=== PATIENT | female | born 1965 | race Native Hawaiian/Other Pacific Islander ===

== ENCOUNTER 2017-08-14 19:55 | Emergency (ER) | payer SELFPAY ==
[2017-08-14 20:18] VITALS: RESP 18
[2017-08-14] MEDS ORDERED: Albuterol 0.083% Inhal Sol (2.5 mg/3 mL) UD INH STA (20:18)
[2017-08-14] MEDS ORDERED: Promethazine/Cod 6.25mg-10mg/5ml Syr UD PO STA (20:18)
[2017-08-14] MEDS ORDERED: Sodium Chloride 0.9% 500 ML IV STA (20:20)
--- NOTE | 2017-08-14 20:26 | ED PDOC ---
Arrival/HPI - General Chief Complaint: Abdominal Pain Time Seen by Provider: 08/14/17 20:12 Historian: Patient - History of Present Illness Narrative History of Present Illness (Text): 08/14/17 20:20 52yo female with PMhx of hypertension present with complaint of nonproductive cough x 4days. Started having chest and abdominal pain with cough today. also report nausea and generalized bodyache. The daughter by the bedside states patient's grand daughter was sick with cold. Did not take any medication. Denies fever, chills, vomiting, diarrhea, headache, dizziness, Le edema, calf pain, sick contact, travel. Past Medical History - Provider Review Nursing Documentation Reviewed: Yes - Reproductive Menopause: Yes - Cardiac Hx Cardiac Disorders: Yes Hx Hypertension: Yes - Pulmonary Hx Respiratory Disorders: No - Neurological Hx Neurological Disorder: No - HEENT Hx HEENT Disorder: No - Renal Hx Renal Disorder: Yes Hx Kidney Stones: Yes - Endocrine/Metabolic Hx Endocrine Disorders: Yes Hx Hypothyroidism: Yes - Hematological/Oncological Hx Blood Disorders: No - Integumentary Hx Dermatological Disorder: No - Musculoskeletal/Rheumatological Hx Musculoskeletal Disorders: No - Gastrointestinal Hx Gastrointestinal Disorders: No - Genitourinary/Gynecological Hx Genitourinary Disorders: No - Psychiatric Hx Psychophysiologic Disorder: No Hx Substance Use: No - Surgical History Other/Comment: REMOVAL OF KIDNEY STONES. Family/Social History - Physician Review Nursing Documentation Reviewed: Yes Family/Social History: Unknown Family HX Smoking Status: Never Smoked Hx Alcohol Use: No Hx Substance Use: No Allergies/Home Meds Allergies/Adverse Reactions: Allergies No Known Allergies Allergy (Verified 08/14/17 19:58) Home Medications: Home Meds Medication Instructions Recorded Confirmed Levothyroxine Sodium [Unithroid] 137 mcg PO DAILY 08/14/17 08/14/17 Lisinopril [Zestril] 20 mg PO DAILY 08/14/17 08/14/17 Simvastatin [Zocor] 20 mg PO DAILY 08/14/17 08/14/17 Review of Systems - Physician Review All systems were reviewed & negative as marked: Yes - Review of Systems Constitutional: Fatigue Eyes: Normal ENT: Normal Respiratory: Cough. absent: SOB, Sputum, Wheezing Cardiovascular: Chest Pain. absent: Palpitations, Edema, Calf Pain Gastrointestinal: Abdominal Pain, Nausea. absent: Constipation, Diarrhea, Vomiting, Hematemesis Genitourinary Female: Normal Musculoskeletal: Normal Skin: Normal Neurological: Normal Endocrine: Normal Hemo/Lymphatic: Normal Psychiatric: Normal Physical Exam Vital Signs Reviewed: Yes Vital Signs Temp Pulse Resp BP Pulse Ox 08/14/17 20:00 99.3 F 106 H 18 118/76 95 Temperature: Afebrile Blood Pressure: Normal Pulse: Tachycardic Respiratory Rate: Normal Appearance: Positive for: Well-Appearing, Non-Toxic, Comfortable Pain Distress: None Mental Status: Positive for: Alert and Oriented X 3 - Systems Exam Head: Present: Atraumatic, Normocephalic Pupils: Present: PERRL Extroacular Muscles: Present: EOMI Conjunctiva: Present: Normal Mouth: Present: Moist Mucous Membranes Neck: Present: Normal Range of Motion Respiratory/Chest: Present: Clear to Auscultation, Good Air Exchange. No: Respiratory Distress, Accessory Muscle Use, Wheezes, Decreased Breath Sounds, Rales, Retracting, Rhonchi Cardiovascular: Present: Regular Rate and Rhythm, Normal S1, S2. No: Murmurs Abdomen: Present: Normal Bowel Sounds, Other (Soft). No: Tenderness, Distention , Peritoneal Signs, Rebound, Guarding, McBurney's Point Tender, Rovsing's Sign Present Back: Present: Normal Inspection Upper Extremity: Present: Normal Inspection. No: Cyanosis, Edema Lower Extremity: Present: Normal Inspection. No: Edema Neurological: Present: GCS=15, CN II-XII Intact, Speech Normal Skin: Present: Warm, Dry, Normal Color. No: Rashes Psychiatric: Present: Alert, Oriented x 3, Normal Insight, Normal Concentration Medical Decision Making ED Course and Treatment: 08/14/17 22:33 PT in ED for stated history. she was not in any distress. Her VS improved in ED with medication and hydration. Lab was unremarkable with exception of hypokalemia and it was repleted Rapid Flu A was positive and pt was treated with Tamiflu CXR NAD Pt was give Zpack for URI Result was DW both pt and the daughter She was DC home with prometh with codeine, ibuproffen, Tamiflu and Zpack. Referred to her PMD. Advised to drink plenty of fluid and rest - Lab Interpretations Lab Results: 08/14/17 20:45 08/14/17 20:45 Lab Results 08/14/17 21:00: Influenza Typ A,B (EIA) Pos for influenza a H 08/14/17 20:45: Sodium 138, Potassium 3.1 L, Chloride 99, Carbon Dioxide 24, Anion Gap 18, BUN 12, Creatinine 0.6 L, Est GFR ( Amer) > 60, Est GFR ( Non-Af Amer) > 60, Random Glucose 178 H, Calcium 9.6, Magnesium 2.3 H, Total Bilirubin 0.5, AST 26, ALT 35, Alkaline Phosphatase 77, Lactate Dehydrogenase 454, Total Creatine Kinase 93, Troponin I < 0.01, Total Protein 7.8, Albumin 4.5 , Globulin 3.4, Albumin/Globulin Ratio 1.3, Lipase 97 08/14/17 20:45: Urine Color Light yellow, Urine Appearance Clear, Urine pH 6.0, Ur Specific [place] <= 1.005, Urine Protein Negative, Urine Glucose (UA) Negative, Urine Ketones Negative, Urine Blood Negative, Urine Nitrate Negative, Urine Bilirubin Negative, Urine Urobilinogen 0.2, Ur Leukocyte Esterase Negative 08/14/17 20:45: PT 12.1, INR 1.06, APTT 30.6 08/14/17 20:45: WBC 4.3 L, RBC 4.63, Hgb 13.7, Hct 40.6, MCV 87.7, MCH 29.6, MCHC 33.7, RDW 13.2, Plt Count 188, MPV 10.0, Gran % 69.8 H, Lymph % (Auto) 19.8 L, [place] % (Auto) 9.9 H, Eos % (Auto) 0.5 L, Baso % (Auto) 0.0, Gran # 2.97 , Lymph # (Auto) 0.8 L, [place] # (Auto) 0.4, Eos # (Auto) 0.0, Baso # (Auto) 0.00 - RAD Interpretation Radiology Orders: 08/14/17 20:17 CHEST TWO VIEWS (PA/LAT) [RAD] Stat - Medication Orders Current Medication Orders: Discontinued Medications Acetaminophen (Tylenol 325mg Tab) 975 mg PO STAT STA Stop: 08/14/17 20:20 Last Admin: 08/14/17 20:56 Dose: 975 mg MAR Pain/Vitals Document 08/14/17 20:56 AD (Rec: 08/14/17 20:56 AD [id number]) Presence of Pain Presence of Pain Yes Location Pain Location Body Site Abdomen Albuterol Sulfate (Albuterol 0.083% Inhal Kiesha (2.5 Mg/3 Ml) Ud) 2.5 mg INH STAT STA Stop: 08/14/17 20:19 Last Admin: 08/14/17 20:56 Dose: 2.5 mg Azithromycin (Zithromax) 500 mg PO STAT STA PRN Reason: Protocol Stop: 08/14/17 22:12 Famotidine (Pepcid) 20 mg IVP STAT STA Stop: 08/14/17 20:19 Last Admin: 08/14/17 20:55 Dose: 20 mg IVP Administration Document 08/14/17 20:55 AD (Rec: 08/14/17 20:55 AD [id number] Charges for Administration # of IVP Administrations 1 Sodium Chloride (Sodium Chloride 0.9%) 500 mls @ 999 mls/hr IV .Q31M STA Stop: 08/14/17 20:50 Last Admin: 08/14/17 20:56 Dose: 999 mls/hr eMAR Start Stop Document 08/14/17 20:56 AD (Rec: 08/14/17 20:56 AD [id number]) Intravenous Solution Start Date 08/14/17 Start Time 20:56 Oseltamivir Phosphate (Tamiflu Cap) 75 mg PO ONCE STA PRN Reason: Protocol Stop: 08/14/17 21:45 Last Admin: 08/14/17 22:08 Dose: 75 mg Potassium Chloride (K-Dur 20 Meq Er Tab) 40 meq PO STAT STA Stop: 08/14/17 21:10 Last Admin: 08/14/17 21:15 Dose: 40 meq Promethazine HCl/Codeine (Phenergan/Codeine Oral Syrup) 5 ml PO STAT STA Stop: 08/14/17 20:19 Last Admin: 08/14/17 20:55 Dose: 5 ml Disposition/Present on Arrival - Present on Arrival Any Indicators Present on Arrival: No History of DVT/PE: No History of Uncontrolled Diabetes: No Urinary Catheter: No History of Decub. Ulcer: No History Surgical Site Infection Following: None - Disposition Have Diagnosis and Disposition been Completed?: Yes Diagnosis: Influenza, URI (upper respiratory infection) Disposition: HOME/ ROUTINE Disposition Time: 22:15 Patient Plan: Discharge Patient Problems: Current Active Problems Problem Status Onset Influenza Acute Condition: STABLE Discharge Instructions (ExitCare): Flu, Adult (DC) Additional Instructions: Follow up with your doctor Drink plenty of fluid and test Take ibuprofen/Tylenol every 6hrs as needed for pain/fever Return to ED for any new or worsening symptoms Prescriptions: Azithromycin [Zithromax] 250 mg PO DAILY #4 tab Ibuprofen [Motrin Tab] 600 mg PO Q6 #20 tab Oseltamivir Phosphate [Tamiflu] 75 mg PO BID #10 capsule Promethazine HCl/Codeine [Prometh-Codein 6.25-10 mg/5 ml] 5 ml PO Q6 #100 ml [facility] - Follow up with primary [facility] [Outside] - Follow up with primary Forms: [employer] (Turkmen)
[2017-08-14 20:59] LABS: EOS % 0.5 % (1.5-5.0); GRAN # 2.97 (1.4-6.5); GRAN % 69.8 % (50.0-68.0); HEMOGLOBIN 13.7 g/dL (12.0-16.0); LYMPH # 0.8 (1.2-3.4); LYMPH % 19.8 % (22.0-35.0); MEAN CELL VOLUME 87.7 fl (80.0-105.0); MEAN CORPUSCULAR HEMOGLOBIN 29.6 pg (25.0-35.0); MEAN CORPUSCULAR HGB CONC 33.7 g/dl (31.0-37.0); MONO # 0.4 (0.1-0.6); MONO % 9.9 % (1.0-6.0); RBC 4.63 10^6/uL (3.5-6.1); RED CELL DISTRIBUTION WIDTH 13.2 % (11.5-14.5); WHITE BLOOD COUNT 4.3 10^3/ul (4.5-11.0)
[2017-08-14 21:00] LABS: URINE BILIRUBIN NEGATIVE (NEGATIVE); URINE BLOOD NEGATIVE (NEGATIVE); URINE GLUCOSE (UA) NEGATIVE (NEGATIVE); URINE LEUKOCYTE ESTERASE NEGATIVE Leu/uL (NEGATIVE); URINE NITRATE NEGATIVE (NEGATIVE); URINE PROTEIN NEGATIVE mg/dL (<30 mg/dL); URINE UROBILINOGEN 0.2 E.U./dL (<1 E.U./dL)
[2017-08-14 21:02] LABS: URINE APPEARANCE CLEAR (CLEAR); URINE COLOR LIGHT YELLOW (YELLOW)
[2017-08-14 21:07] LABS: INR 1.06 (0.93-1.08); PARTIAL THROMBOPLASTIN TIME 30.6 Seconds (25.1-36.5); PROTHROMBIN TIME 12.1 SECONDS (9.4-12.5)
[2017-08-14 21:09] LABS: ALB/GLOB RATIO 1.3 (1.1-1.8); ALBUMIN 4.5 g/dL (3.0-4.8); ALT/SGPT 35 U/L (7-56); AST/SGOT 26 U/L (14-36); BLOOD UREA NITROGEN 12 mg/dL (7-21); CALCIUM 9.6 mg/dL (8.4-10.5); GFR AFRICAN-AMERICAN > 60; GFR NON-AFRICAN AMERICAN > 60; LIPASE 97 U/L (23-300); MAGNESIUM 2.3 mg/dL (1.7-2.2)
[2017-08-14] MEDS ORDERED: Potassium Chloride 20 mEq ER Tab PO STA (21:09)
[2017-08-14 21:20] LABS: TROPONIN I < 0.01 ng/mL
[2017-08-14 22:47] VITALS: BP 118/85; PULSE 97; TEMP 98.9; O2SAT 98
--- NOTE | 2017-08-15 10:05 | CARD ---
APPROVED REPORT EKG Measurement Heart [id number] <Conclusion> Sinus Tachycardia 105/min.
== END 2017-08-14 22:45 | disposition home or self-care (01) ==
LOC: ED 19:55
DX: J11.1 Influenza due to unidentified influenza virus with other respiratory manifestations (principal); I10 Essential (primary) hypertension
CPT/HCPCS: 71046; 80053; 81003; 82550; 83615; 83690; 83735; 84484; 85025; 85610; 85730; 87804; 93005; 96374; 99283; J7040

== ENCOUNTER 2017-11-30 09:22 | Emergency (ER) | payer MEDICAID ==
[2017-11-30] MEDS ORDERED: Sodium Chloride 0.9% 1,000 ML IV STA ×2 (09:38→11:27)
--- NOTE | 2017-11-30 09:52 | ED PDOC ---
Arrival/HPI - General Chief Complaint: Dizziness/Lightheaded Time Seen by Provider: 11/30/17 09:29 Historian: Patient - History of Present Illness Narrative History of Present Illness (Text): 11/30/17 09:42 52 year old female, with past medical history of hypertension, presents to the Emergency department complaining of dizziness and vomiting prior to arrival. Patient informs feeling dizzy when her blood pressure was 170 mmHg systolic at 6am this morning, for which she took double her dose of Lisinopril. Patient began vomiting right after. Patient denies any new episodes of vomiting but currently complains of persistent dizziness. Patient denies any chest pain but states her "heart is beating strangely". Patient denies any fever, chills, diarrhea, abdominal pain, shortness of breath or any other complaints. Patient presents to the Emergency department for medical evaluation. Time/Duration: 1-3 hours Symptom Onset: Gradual Symptom Course: Unchanged Activities at Onset: Light Context: Home Past Medical History - Provider Review Nursing Documentation Reviewed: Yes - Cardiac Hx Cardiac Disorders: Yes Hx Hypertension: Yes - Pulmonary Hx Respiratory Disorders: No - Neurological Hx Neurological Disorder: No - HEENT Hx HEENT Disorder: No - Renal Hx Renal Disorder: Yes Hx Kidney Stones: Yes - Endocrine/Metabolic Hx Endocrine Disorders: Yes Hx Hypothyroidism: Yes - Hematological/Oncological Hx Blood Disorders: No - Integumentary Hx Dermatological Disorder: No - Musculoskeletal/Rheumatological Hx Musculoskeletal Disorders: No - Gastrointestinal Hx Gastrointestinal Disorders: No - Genitourinary/Gynecological Hx Genitourinary Disorders: No - Psychiatric Hx Psychophysiologic Disorder: No Hx Substance Use: No - Surgical History Other/Comment: REMOVAL OF KIDNEY STONES. - Anesthesia Hx Anesthesia: No Hx Anesthesia Reactions: No Hx Malignant Hyperthermia: No Family/Social History - Physician Review Nursing Documentation Reviewed: Yes Family/Social History: No Known Family HX Smoking Status: Never Smoked Hx Alcohol Use: No Hx Substance Use: No Allergies/Home Meds Allergies/Adverse Reactions: Allergies No Known Allergies Allergy (Verified 08/14/17 19:58) Home Medications: Home Meds Medication Instructions Recorded Confirmed Levothyroxine Sodium [Unithroid] 137 mcg PO DAILY 08/14/17 11/30/17 Lisinopril [Zestril] 20 mg PO DAILY 08/14/17 11/30/17 Simvastatin [Zocor] 20 mg PO DAILY 08/14/17 11/30/17 Review of Systems - Physician Review All systems were reviewed & negative as marked: Yes - Review of Systems Constitutional: Normal. absent: Fevers Eyes: Normal ENT: Normal Respiratory: Normal. absent: SOB Cardiovascular: Normal. absent: Chest Pain Gastrointestinal: Nausea, Vomiting. absent: Abdominal Pain, Diarrhea Genitourinary Female: Normal Musculoskeletal: Normal Skin: Normal Neurological: Dizziness Endocrine: Normal Hemo/Lymphatic: Normal Psychiatric: Normal Physical Exam Vital Signs Reviewed: Yes Vital Signs Temp Pulse Resp BP Pulse Ox 11/30/17 13:55 98.5 F 84 18 126/89 97 11/30/17 12:32 98.9 F 82 18 130/73 98 11/30/17 10:59 89 19 132/84 98 11/30/17 09:22 97.4 F L 91 H 20 140/71 94 L Temperature: Afebrile Blood Pressure: Normal Pulse: Tachycardic Respiratory Rate: Normal Appearance: Positive for: Well-Appearing, Non-Toxic, Comfortable Pain Distress: None Mental Status: Positive for: Alert and Oriented X 3 - Systems Exam Head: Present: Atraumatic, Normocephalic Pupils: Present: PERRL Extroacular Muscles: Present: EOMI Conjunctiva: Present: Normal Mouth: Present: Moist Mucous Membranes Neck: Present: Normal Range of Motion Respiratory/Chest: Present: Clear to Auscultation, Good Air Exchange. No: Respiratory Distress, Accessory Muscle Use Cardiovascular: Present: Regular Rate and Rhythm, Normal S1, S2. No: Murmurs Abdomen: No: Tenderness, Distention, Peritoneal Signs Back: Present: Normal Inspection Upper Extremity: Present: Normal Inspection, NORMAL PULSES, Neurovascularly Intact, Other (intact ROM, strength 5/5 grossly intact in all limbs, neurovasc intact b/l; + ambulatory; reflex +2/2). No: Cyanosis, Edema Lower Extremity: Present: Normal Inspection, Normal ROM, Neurovascularly Intact , Other (4/5 strength). No: Edema Neurological: Present: GCS=15, CN II-XII Intact, Speech Normal, Motor Func Grossly Intact, Other (No nystagmus. Finger to nose coordination intact however patient slow to perform exam as she keeps closing her eyes and is somewhat uncooperative with exam) Skin: Present: Warm, Dry, Normal Color. No: Rashes Psychiatric: Present: Alert, Oriented x 3, Normal Insight, Normal Concentration Medical Decision Making ED Course and Treatment: 11/30/17 09:45 Impression: 52 year old female presents to the Emergency department for dizziness, nausea and vomiting. Plan: -- EKG -- Chest X-ray -- Aspirin -- Zofran -- IV Fluids -- Labs -- Reassess and disposition Prior Visits: Notes and results from previous visits were reviewed. Progress Notes: 11/30/17 09:40 EKG: Ordered, reviewed, and independently interpreted the EKG. Rate : 80 BPM Rhythm : NSR Interpretation : Normal axis; QTC 463; isolated T wave inversion in Lead III; No other ST/T wave changes. 11/30/17 11:57 Patient re-evaluated, nausea has improved after zofran. Patient much more awake and alert. BP in the 130's systolic. Lab and imaging results discussed with patient and daughter. Will hydrate with additional NS bolus (patient has already received 1L). 11/30/17 13:15 Patient re-evaluated. She has finished her second liter of NS. BP 121 systolic. Patient with no complaints. Will send home with Rx for zofran. - Lab Interpretations Lab Results: 11/30/17 09:43 11/30/17 09:43 Lab Results 11/30/17 10:57: Urine Color Yellow, Urine Appearance Clear, Urine pH 6.0, Ur Specific [place] >= 1.030, Urine Protein Negative, Urine Glucose (UA) Negative, Urine Ketones Negative, Urine Blood Negative, Urine Nitrate Negative, Urine Bilirubin Negative, Urine Urobilinogen 0.2, Ur Leukocyte Esterase Negative 11/30/17 09:43: Sodium 142, Potassium 4.1, Chloride 104, Carbon Dioxide 23, Anion Gap 19, BUN 13, Creatinine 0.6 L, Est GFR ( Amer) > 60, Est GFR ( Non-Af Amer) > 60, Random Glucose 204 H, Calcium 9.1, Magnesium 1.8, Total Bilirubin 0.6, AST 21, ALT 37, Alkaline Phosphatase 85, Lactate Dehydrogenase 441, Total Creatine Kinase 54, Troponin I < 0.01, Total Protein 7.2, Albumin 4.4 , Globulin 2.8, Albumin/Globulin Ratio 1.6 11/30/17 09:43: WBC 6.9 D, RBC 4.44, Hgb 12.8, Hct 37.2, MCV 83.8 D, MCH 28.8 , MCHC 34.4, RDW 12.6, Plt Count 201, MPV 10.1, Gran % 83.0 H, Lymph % (Auto) 13.3 L, [place] % (Auto) 3.6, Eos % (Auto) 0.1 L, Baso % (Auto) 0.0, Gran # 5.72, Lymph # (Auto) 0.9 L, [place] # (Auto) 0.3, Eos # (Auto) 0.0, Baso # (Auto) 0.00 - RAD Interpretation Narrative RAD Interpretations (Text): 11/30/17 11:17 Chest X-ray reviewed by radiologist, shows: FINDINGS: LUNGS: No active pulmonary disease. PLEURA: No significant pleural effusion identified, no pneumothorax apparent. CARDIOVASCULAR: No radiographic findings to suggest acute or significant cardiovascular disease. OSSEOUS STRUCTURES: No significant abnormalities. VISUALIZED UPPER ABDOMEN: Normal. OTHER FINDINGS: None. IMPRESSION: No active disease. No significant interval change compared to the prior examination(s). Radiology Orders: 11/30/17 09:37 CHEST PORTABLE [RAD] Stat Associate Professor Computer Science: Radiologist - EKG Interpretation Interpreted by ED Physician: Yes Type: 12 lead EKG - Medication Orders Current Medication Orders: Discontinued Medications Aspirin (Aspirin) 325 mg PO STAT STA Stop: 11/30/17 09:38 Last Admin: 11/30/17 09:57 Dose: 325 mg Sodium Chloride (Sodium Chloride 0.9%) 1,000 mls @ 999 mls/hr IV .Q1H1M STA Stop: 11/30/17 10:38 Last Admin: 11/30/17 09:58 Dose: 999 mls/hr eMAR Start Stop Document 11/30/17 09:58 OCS (Rec: 11/30/17 09:58 OCS [id number]) Intravenous Solution Start Date 11/30/17 Start Time 09:58 End Date 11/30/17 End time 10:59 Total Infusion Time 61 Sodium Chloride (Sodium Chloride 0.9%) 1,000 mls @ 999 mls/hr IV .Q1H1M STA Stop: 11/30/17 12:27 Last Admin: 11/30/17 12:00 Dose: 999 mls/hr eMAR Start Stop Document 11/30/17 12:00 OCS (Rec: 11/30/17 12:28 OCS [id number]) Intravenous Solution Start Date 11/30/17 Start Time 12:28 End Date 11/30/17 End time 13:29 Total Infusion Time 61 Ondansetron HCl (Zofran Inj) 4 mg IVP STAT STA Stop: 11/30/17 09:39 Last Admin: 11/30/17 09:57 Dose: 4 mg IVP Administration Document 11/30/17 09:57 OCS (Rec: 11/30/17 09:57 OCS [id number]) Charges for Administration # of IVP Administrations 1 - Scribe Statement The provider has reviewed the documentation as recorded by the Scribe Jack Foster. All medical record entries made by the Scribe were at my direction and personally dictated by me. I have reviewed the chart and agree that the record accurately reflects my personal performance of the history, physical exam, medical decision making, and the department course for this patient. I have also personally directed, reviewed, and agree with the discharge instructions and disposition. Disposition/Present on Arrival - Present on Arrival Any Indicators Present on Arrival: No History of DVT/PE: No History of Uncontrolled Diabetes: No Urinary Catheter: No History of Decub. Ulcer: No History Surgical Site Infection Following: None - Disposition Have Diagnosis and Disposition been Completed?: Yes Diagnosis: Vomiting, Dizziness Disposition: HOME/ ROUTINE Disposition Time: 13:55 Patient Plan: Discharge Condition: GOOD Discharge Instructions (ExitCare): Nausea and Vomiting, Adult (DC), Dizziness, Nonvertigo, (DC) Additional Instructions: AUREA WAGONER, thank you for letting us take care of you today. Your provider was Rayne Espinal MD and you were treated for VOMITING. The emergency medical care you received today was directed at your acute symptoms. If you were prescribed any medication, please fill it and take as directed. It may take several days for your symptoms to resolve. Return to the Emergency Department if your symptoms worsen, do not improve, or if you have any other problems. Please contact your doctor or call one of the physicians/clinics you have been referred to that are listed on the Patient Visit Information form that is included in your discharge packet. Bring any paperwork you were given at discharge with you along with any medications you are taking to your follow up visit. Our treatment cannot replace ongoing medical care by a primary care provider outside of the emergency department. Thank you for allowing the [facility] team to be part of your care today. If you had an X-Ray or CT scan: A Radiologist will review the ED reading if any change in treatment is needed we will contact you. If you had a blood, urine, or wound culture: It will take several days for the results, if any change in treatment is needed we will contact you. If you had an STI test: It will take 48 hours for the results. Please call after 1 week if you have not heard back. Prescriptions: Ondansetron [Zofran] 4 mg PO Q8H PRN #10 tab PRN Reason: Nausea/Vomiting Forms: [employer] (Samoan)
[2017-11-30 10:07] LABS: EOS % 0.1 % (1.5-5.0); GRAN # 5.72 (1.4-6.5); HEMOGLOBIN 12.8 g/dL (12.0-16.0); LYMPH # 0.9 (1.2-3.4); LYMPH % 13.3 % (22.0-35.0); MEAN CELL VOLUME 83.8 fl (80.0-105.0); MEAN CORPUSCULAR HEMOGLOBIN 28.8 pg (25.0-35.0); MEAN CORPUSCULAR HGB CONC 34.4 g/dl (31.0-37.0); MEAN PLATELET VOLUME 10.1 fl (7.0-11.0); MONO # 0.3 (0.1-0.6); MONO % 3.6 % (1.0-6.0); RBC 4.44 10^6/uL (3.5-6.1); RED CELL DISTRIBUTION WIDTH 12.6 % (11.5-14.5); WHITE BLOOD COUNT 6.9 10^3/ul (4.5-11.0)
[2017-11-30 10:13] LABS: ALB/GLOB RATIO 1.6 (1.1-1.8); ALBUMIN 4.4 g/dL (3.0-4.8); ALT/SGPT 37 U/L (7-56); AST/SGOT 21 U/L (14-36); BLOOD UREA NITROGEN 13 mg/dL (7-21); CALCIUM 9.1 mg/dL (8.4-10.5); GFR AFRICAN-AMERICAN > 60; GFR NON-AFRICAN AMERICAN > 60
[2017-11-30 10:18] VITALS: BMI 34.1
[2017-11-30 10:25] LABS: TROPONIN I < 0.01 ng/mL
--- NOTE | 2017-11-30 11:06 | RAD ---
HISTORY: chest pain COMPARISON: 08/14/2017 FINDINGS: LUNGS: No active pulmonary disease. PLEURA: No significant pleural effusion identified, no pneumothorax apparent. CARDIOVASCULAR: No radiographic findings to suggest acute or significant cardiovascular disease. OSSEOUS STRUCTURES: No significant abnormalities. VISUALIZED UPPER ABDOMEN: Normal. OTHER FINDINGS: None. IMPRESSION: No active disease. No significant interval change compared to the prior examination(s).
[2017-11-30 11:07] LABS: URINE BILIRUBIN NEGATIVE (NEGATIVE); URINE BLOOD NEGATIVE (NEGATIVE); URINE GLUCOSE (UA) NEGATIVE (NEGATIVE); URINE LEUKOCYTE ESTERASE NEGATIVE Leu/uL (NEGATIVE); URINE PROTEIN NEGATIVE mg/dL (<30 mg/dL); URINE UROBILINOGEN 0.2 E.U./dL (<1 E.U./dL)
[2017-11-30 11:08] LABS: URINE APPEARANCE CLEAR (CLEAR); URINE COLOR YELLOW (YELLOW)
[2017-11-30 12:37] VITALS: RESP 18
--- NOTE | 2017-11-30 13:17 | CARD ---
APPROVED REPORT EKG Measurement Heart [id number] <Conclusion> Poor data quality, interpretation may be adversely affected Normal sinus rhythm Normal ECG
[2017-11-30 13:57] VITALS: BP 126/89; PULSE 84; TEMP 98.5; O2SAT 97
== END 2017-11-30 13:54 | disposition home or self-care (01) ==
LOC: ED 09:22
DX: R42 Dizziness and giddiness (principal); R11.10 Vomiting, unspecified; I10 Essential (primary) hypertension
CPT/HCPCS: 71045; 80053; 81003; 82550; 83615; 83735; 84484; 85025; 93005; 96361; 96374; 96375; 99285; J2405; J7030

== ENCOUNTER 2017-12-04 10:52 | Observation (INO) | payer MEDICAID ==
[2017-12-04 10:52] VITALS: BMI 34.1
--- NOTE | 2017-12-04 11:35 | ED PDOC ---
Arrival/HPI - History of Present Illness Time/Duration: 1-3 hours Symptom Onset: Sudden Symptom Course: Unchanged Quality: Pressure <Saravanan Myers - Last Filed: 12/04/17 15:59> - General Historian: Patient, Family <Felipe Rangel - Last Filed: 12/04/17 18:12> - General Chief Complaint: GI Problem Time Seen by Provider: 12/04/17 11:02 - History of Present Illness Narrative History of Present Illness (Text): Patient is a 52 year old female with a past medical history of hypertension and hypothyroidism who presents to the emergency department for evaluation and treatment of abdominal pain, nausea, vomiting, and chest pain. States all symptoms began this morning after taking double her dose of lisinopril. States she took double the dose because her systolic blood pressure was in the 150s- 160s. States the chest pain is diffuse and radiates into the abdomen. The pain is associated with diaphoresis, nausea, and several bouts of nonbloody, nonbilious emesis. Also admits to dizziness and lightheadedness. Denies fever, chills, shortness of breath, diarrhea, constipation, and urinary symptoms. PMHx: HTN, hypothyroidism, coma secondary to carbon monoxide poisoning PSHx: cholecystectomy, "scalp surgery" Allergies: "Fruits" Family Hx: noncontributory Social Hx: denies ETOH use, Denies tobacco use, Denies illicit drug use 12/04/17 14:23 (Saravanan Myers) Past Medical History - Provider Review Nursing Documentation Reviewed: Yes - Travel History Have you recently traveled outside [place] w/in the past 3 mons?: No - Cardiac Hx Cardiac Disorders: Yes Hx Hypertension: Yes - Pulmonary Hx Respiratory Disorders: No - Neurological Hx Neurological Disorder: No - HEENT Hx HEENT Disorder: No - Renal Hx Renal Disorder: Yes Hx Kidney Stones: Yes - Endocrine/Metabolic Hx Endocrine Disorders: Yes Hx Hypothyroidism: Yes - Hematological/Oncological Hx Blood Disorders: No - Integumentary Hx Dermatological Disorder: No - Musculoskeletal/Rheumatological Hx Musculoskeletal Disorders: No - Gastrointestinal Hx Gastrointestinal Disorders: No - Genitourinary/Gynecological Hx Genitourinary Disorders: No - Psychiatric Hx Psychophysiologic Disorder: No Hx Substance Use: No - Surgical History Other/Comment: REMOVAL OF KIDNEY STONES. - Anesthesia Hx Anesthesia: No Hx Anesthesia Reactions: No Hx Malignant Hyperthermia: No <Saravanan Myers - Last Filed: 12/04/17 15:59> - Past History Past History: No Previous - Reproductive Currently : Unknown <Felipe Rangel - Last Filed: 12/04/17 18:12> Family/Social History - Physician Review Nursing Documentation Reviewed: Yes Family/Social History: Unknown Family HX Smoking Status: Never Smoked Hx Alcohol Use: No Hx Substance Use: No <Saravanan Myers - Last Filed: 12/04/17 15:59> Allergies/Home Meds <Saravanan Myers - Last Filed: 12/04/17 15:59> <Felipe Rangel - Last Filed: 12/04/17 18:12> Allergies/Adverse Reactions: Allergies No Known Allergies Allergy (Verified 12/04/17 11:07) Home Medications: Home Meds Medication Instructions Recorded Confirmed Levothyroxine Sodium [Unithroid] 137 mcg PO DAILY 08/14/17 12/04/17 Lisinopril [Zestril] 20 mg PO DAILY 08/14/17 12/04/17 Simvastatin [Zocor] 20 mg PO DAILY 08/14/17 12/04/17 Review of Systems - Review of Systems Eyes: absent: Photophobia, Eye Pain ENT: Normal Respiratory: Normal Cardiovascular: Chest Pain Gastrointestinal: Abdominal Pain, Nausea, Vomiting. absent: Constipation, Diarrhea Genitourinary Female: Normal Musculoskeletal: Normal Skin: Normal Neurological: Dizziness. absent: Focal Weakness, Speech Changes, Facial Droop Endocrine: Normal Hemo/Lymphatic: Normal Psychiatric: Normal <Saravanan Myers - Last Filed: 12/04/17 15:59> Physical Exam Vital Signs Reviewed: Yes Temperature: Hypothermic Blood Pressure: Normal Pulse: Regular Respiratory Rate: Normal Appearance: Positive for: Uncomfortable Pain Distress: Mild Mental Status: Positive for: Alert and Oriented X 3 - Systems Exam Head: Present: Atraumatic, Normocephalic Pupils: Present: PERRL Extroacular Muscles: Present: Other (horizontal nystagmus) Conjunctiva: Present: Normal Mouth: Present: Moist Mucous Membranes Neck: Present: Normal Range of Motion Respiratory/Chest: Present: Clear to Auscultation, Good Air Exchange. No: Respiratory Distress, Accessory Muscle Use Cardiovascular: Present: Regular Rate and Rhythm, Normal S1, S2. No: Murmurs Abdomen: No: Tenderness, Distention, Peritoneal Signs Back: Present: Normal Inspection Upper Extremity: Present: Normal Inspection. No: Cyanosis, Edema Lower Extremity: Present: Normal Inspection. No: Edema Neurological: Present: GCS=15, Speech Normal Skin: Present: Warm, Normal Color, Diaphoretic. No: Rashes Psychiatric: Present: Alert, Oriented x 3, Normal Insight, Normal Concentration <Mamta Myersil - Last Filed: 12/04/17 15:59> Appearance: Positive for: Well-Appearing. No: Ill-Appearing, Unkept <Felipe Rangel - Last Filed: 12/04/17 18:12> Vital Signs Temp Pulse Resp BP Pulse Ox 12/04/17 15:23 88 18 104/62 100 12/04/17 11:17 97.4 F L 78 17 143/72 99 Medical Decision Making - Lab Interpretations I have reviewed the lab results: Yes - EKG Interpretation Interpreted by ED Physician: Yes Type: 12 lead EKG <LouisSaravanan - Last Filed: 12/04/17 15:59> Re-evaluation Time: 15:30 Reassessment Condition: Unchanged - Critical Care Critical Care Minutes: 30 minutes Critical Care Time: Excluding Proc Time - Lab Interpretations Interpretation: Abnormal lab values (low TSH) - RAD Interpretation Knitter Wire Mesh: Radiologist - EKG Interpretation Comparison: Similar to previous EKG <Felipe Rangel - Last Filed: 12/04/17 18:12> ED Course and Treatment: Assessment and Plan: Patient is a 52 year old female with a past medical history of hypertension who presents to the emergency department for evaluation and treatment of abdominal pain, nausea, vomiting, and chest pain. 12/04/17 11:38 Pre-syncope; Dizziness - orthostatics - meclizine - half normal NS 1 liter bolus - CT head without contrast Abdominal Pain, Nausea, Vomiting - reglan - pepcid 12/04/17 14:40 - CT head reviewed and appreciated- no acute intracranial findings - Chest X-ray reviewed and appreciated- no acute findings 12/04/17 15:19 - patient continues to have dizziness - unable to ambulate 12/04/17 15:58 - patient endorsed to hospitalist team who have accepted the patient to there service (Saravanan Myers) I performed the hx and physical exam of the patient and discussed their mgt with the RESIDENT. I reviewed the RESIDENT's NOTE and agree with the assessment and plan of care. after 1st round of meclizine/reglan/fluids, pt continue to have dizziness/ lightheadedness, pt is unable to ambulate 3:00pm - after valium, pt continue to have dizziness/lightheadedness, inability to ambulate concern for basiliar infarction/basiliar insufficency is warranted, will recommend patient for admission pt is made aware of her medical results agrees with admission (Felipe Rangel) - Critical Care Narrative Critical Care (Text): 12/04/17 18:10 critical care time: 30min, excluding procedure time, excluding time teaching residents/students/mid-level providers; including initial eval/diagnosis, diagnostic interpretation, re-eval, consultations, final disposition (Felipe Rangel) - Lab Interpretations Lab Results: 12/04/17 11:19 12/04/17 11:30 Lab Results 12/04/17 11:32: POC Glucose (mg/dL) 134 H 12/04/17 11:30: TSH 3rd Generation 0.06 L 12/04/17 11:30: Phosphorus 3.7 12/04/17 11:30: Sodium 142, Potassium 3.5 L, Chloride 102, Carbon Dioxide 24, Anion Gap 20, BUN 13, Creatinine 0.5 L, Est GFR ( Amer) > 60, Est GFR ( Non-Af Amer) > 60, Random Glucose 132 H, Calcium 9.4, Magnesium 2.1, Total Bilirubin 0.5, AST 24, ALT 30, Alkaline Phosphatase 88, Lactate Dehydrogenase 541, Total Creatine Kinase 34 L, Troponin I 0.01, Total Protein 7.9, Albumin 4.7 , Globulin 3.2, Albumin/Globulin Ratio 1.5 12/04/17 11:19: WBC 7.1, RBC 4.69, Hgb 13.6, Hct 39.1, MCV 83.4, MCH 29.0, MCHC 34.8, RDW 12.7, Plt Count 227, MPV 10.2, Gran % 56.1, Lymph % (Auto) 37.2 H, Sevier % (Auto) 5.7, Eos % (Auto) 1.0 L, Baso % (Auto) 0.0, Gran # 3.97, Lymph # ( Auto) 2.6, Sevier # (Auto) 0.4, Eos # (Auto) 0.1, Baso # (Auto) 0.00 - RAD Interpretation Narrative RAD Interpretations (Text): 12/04/17 14:40 PROCEDURE: CT HEAD WITHOUT CONTRAST. HISTORY: dizziness COMPARISON: None available. TECHNIQUE: Axial computed tomography images were obtained through the head/brain without intravenous contrast. Radiation dose: Total exam DLP = 873 mGy-cm. This CT exam was performed using one or more of the following dose reduction techniques: Automated exposure control, adjustment of the mA and/or kV according to patient size, and/or use of iterative reconstruction technique. FINDINGS: HEMORRHAGE: No intracranial hemorrhage. BRAIN: No mass effect or edema. No atrophy or chronic microvascular ischemic changes. VENTRICLES: Unremarkable. No hydrocephalus. CALVARIUM: Unremarkable. PARANASAL SINUSES: Unremarkable as visualized. No significant inflammatory changes. MASTOID AIR CELLS: Unremarkable as visualized. No inflammatory changes. OTHER FINDINGS: None. IMPRESSION: No acute findings PROCEDURE: CHEST RADIOGRAPH, 1 VIEW HISTORY: chest pain COMPARISON: 11/30/2017 FINDINGS: LUNGS: Clear. PLEURA: No pneumothorax or pleural fluid seen. CARDIOVASCULAR: Normal. OSSEOUS STRUCTURES: No significant abnormalities. VISUALIZED UPPER ABDOMEN: Normal. OTHER FINDINGS: None. IMPRESSION: No active disease 12/04/17 15:18 (Saravanan Myers) Radiology Orders: 12/04/17 11:17 HEAD W/O CONTRAST [CT] Stat 12/04/17 12:41 CHEST ONE VIEW [RAD] Stat - EKG Interpretation EKG Interpretation (Text): NSr HR 84 bpm, QTc 441, no defining ST T wave changes 12/04/17 12:25 (Saravanan Myers) - Medication Orders Current Medication Orders: Sodium Chloride (Sodium Chloride 0.45%) 1,000 mls @ 999 mls/hr IV .Q1H1M NE Last Admin: 12/04/17 12:00 Dose: 999 mls/hr eMAR Start Stop Document 12/04/17 12:00 [facility] [place] (Rec: 12/04/17 12:00 [facility] [place] [id number]) Intravenous Solution Start Date 12/04/17 Start Time 12:00 End Date 12/04/17 End time 13:00 Total Infusion Time 60 Potassium Chloride (Potassium Chloride 10 Meq/100 Ml) 10 meq in 100 mls @ 50 mls/hr IVPB Q2H NE Stop: 12/04/17 18:14 Last Admin: 12/04/17 15:36 Dose: 50 mls/hr eMAR Start Stop Document 12/04/17 15:36 [facility] (Rec: 12/04/17 15:37 [facility] [id number] Intravenous Solution Start Date 12/04/17 Start Time 15:37 End Date 12/04/17 End time 17:37 Total Infusion Time 120 Meclizine HCl (Antivert) 50 mg PO Q4H PRN PRN Reason: Dizziness Ondansetron HCl (Zofran Inj) 4 mg IVP Q4H PRN PRN Reason: Nausea/Vomiting Discontinued Medications Aspirin (Aspirin) 325 mg PO STAT STA Stop: 12/04/17 14:27 Last Admin: 12/04/17 15:36 Dose: 325 mg Diazepam (Valium) 5 mg PO STAT STA PRN Reason: Protocol Stop: 12/04/17 12:36 Last Admin: 12/04/17 13:14 Dose: 5 mg Famotidine (Pepcid) 20 mg IVP STAT STA Stop: 12/04/17 11:18 Last Admin: 12/04/17 11:24 Dose: 20 mg IVP Administration Document 12/04/17 11:24 [facility] (Rec: 12/04/17 11:24 [facility] [id number]) Charges for Administration # of IVP Administrations 1 Lorazepam (Ativan) 2 mg IVP ONCE ONE PRN Reason: Protocol Stop: 12/04/17 17:19 Last Admin: 12/04/17 17:39 Dose: 2 mg IVP Administration Document 12/04/17 17:39 [facility] (Rec: 12/04/17 17:39 [facility] [id number] Charges for Administration # of IVP Administrations 1 Meclizine HCl (Antivert) 50 mg PO STAT STA Stop: 12/04/17 11:18 Last Admin: 12/04/17 11:24 Dose: 50 mg Meclizine HCl (Antivert) 50 mg PO STAT STA Stop: 12/04/17 17:18 Last Admin: 12/04/17 17:39 Dose: 50 mg Metoclopramide HCl (Reglan) 10 mg IVP STAT STA Stop: 12/04/17 11:17 Last Admin: 12/04/17 11:24 Dose: 10 mg IVP Administration Document 12/04/17 11:24 [facility] (Rec: 12/04/17 11:24 [facility] [id number]) Charges for Administration # of IVP Administrations 1 Ondansetron HCl (Zofran Inj) 4 mg IVP STAT STA Stop: 12/04/17 17:18 Last Admin: 12/04/17 17:39 Dose: 4 mg IVP Administration Document 12/04/17 17:39 [facility] (Rec: 12/04/17 17:39 [facility] [id number] Charges for Administration # of IVP Administrations 1 Disposition/Present on Arrival - Present on Arrival Any Indicators Present on Arrival: No History of DVT/PE: No History of Uncontrolled Diabetes: No Urinary Catheter: No History of Decub. Ulcer: No History Surgical Site Infection Following: None - Disposition Have Diagnosis and Disposition been Completed?: Yes Disposition Time: 15:19 <Saravanan Myers - Last Filed: 12/04/17 15:59> - Disposition Patient Plan: Admission, Telemetry <Felipe Rangel - Last Filed: 12/04/17 18:12> - Disposition Diagnosis: Dizziness, TIA (transient ischemic attack), Gait abnormality Disposition: HOSPITALIZED Patient Problems: Current Active Problems Problem Status Onset Dizziness Acute Condition: FAIR
[2017-12-04 11:39] LABS: EOS # 0.1 (0.0-0.7); GRAN # 3.97 (1.4-6.5); GRAN % 56.1 % (50.0-68.0); HEMOGLOBIN 13.6 g/dL (12.0-16.0); LYMPH # 2.6 (1.2-3.4); LYMPH % 37.2 % (22.0-35.0); MEAN CELL VOLUME 83.4 fl (80.0-105.0); MEAN CORPUSCULAR HGB CONC 34.8 g/dl (31.0-37.0); MEAN PLATELET VOLUME 10.2 fl (7.0-11.0); MONO # 0.4 (0.1-0.6); MONO % 5.7 % (1.0-6.0); RBC 4.69 10^6/uL (3.5-6.1); RED CELL DISTRIBUTION WIDTH 12.7 % (11.5-14.5); WHITE BLOOD COUNT 7.1 10^3/ul (4.5-11.0)
[2017-12-04] MEDS: Sodium Chloride 0.45% 1,000 ML IV SCH ×2 (12:00→18:22)
--- NOTE | 2017-12-04 13:48 | CT ---
PROCEDURE: CT HEAD WITHOUT CONTRAST. HISTORY: dizziness COMPARISON: None available. TECHNIQUE: Axial computed tomography images were obtained through the head/brain without intravenous contrast. Radiation dose: Total exam DLP = 873 mGy-cm. This CT exam was performed using one or more of the following dose reduction techniques: Automated exposure control, adjustment of the mA and/or kV according to patient size, and/or use of iterative reconstruction technique. FINDINGS: HEMORRHAGE: No intracranial hemorrhage. BRAIN: No mass effect or edema. No atrophy or chronic microvascular ischemic changes. VENTRICLES: Unremarkable. No hydrocephalus. CALVARIUM: Unremarkable. PARANASAL SINUSES: Unremarkable as visualized. No significant inflammatory changes. MASTOID AIR CELLS: Unremarkable as visualized. No inflammatory changes. OTHER FINDINGS: None. IMPRESSION: No acute findings
[2017-12-04 14:07] LABS: BLOOD UREA NITROGEN 13 mg/dL (7-21); GFR AFRICAN-AMERICAN > 60; GFR NON-AFRICAN AMERICAN > 60
[2017-12-04 14:08] LABS: ALB/GLOB RATIO 1.5 (1.1-1.8); ALBUMIN 4.7 g/dL (3.0-4.8); ALT/SGPT 30 U/L (7-56); AST/SGOT 24 U/L (14-36); CALCIUM 9.4 mg/dL (8.4-10.5)
[2017-12-04 14:09] LABS: TROPONIN I 0.01 ng/mL
--- NOTE | 2017-12-04 14:37 | RAD ---
PROCEDURE: CHEST RADIOGRAPH, 1 VIEW HISTORY: chest pain COMPARISON: 11/30/2017 FINDINGS: LUNGS: Clear. PLEURA: No pneumothorax or pleural fluid seen. CARDIOVASCULAR: Normal. OSSEOUS STRUCTURES: No significant abnormalities. VISUALIZED UPPER ABDOMEN: Normal. OTHER FINDINGS: None. IMPRESSION: No active disease.
--- NOTE | 2017-12-04 16:25 | CARD ---
APPROVED REPORT EKG Measurement Heart [id number] ID [id number] <Conclusion> Normal sinus rhythm Normal ECG
--- NOTE | 2017-12-04 17:20 | CP.PCM.HP ---
History of Present Illness - History of Present Illness History of Present Illness: 52 year old female from [facility] with a past medical history of hypertension and hypothyroidism who presents to the emergency department for evaluation and treatment of nausea, vomiting, vertigo and palpitations. Patient reports that last night she developed acute onset vertigo- room spinning, worsened with head movement, and imbalance such that she had difficulty walking without the assistance of her daughter. Around 5 AM the patient took her blood pressure and noted her systolic blood pressure was 180. She got worried about her blood pressure at this time and took 20 mg of Lisinopril. She retook her blood pressure at 9 AM and it was 160 and hence took another Lisinopril 20 mg and then vomited about four times and experienced some palpitations. At the time of my evaluation the patient's eye are closed and she is holding on to the hand rails of the bed as if she is on a roller coaster. She will open her eyes only on request, and only for a second or so. She denies any unilateral weakness or numbness, headache, fever, chills, diarrhea, or muscle aches. Her daughter at bedside acts as the precision lens grinder during the course of the encounter. After speaking with the two and going to place orders at a nearby computer, the patient begins to dry heave. This is in spite of being given 50 mg of Meclizine , 5 mg of Valium, 20 mg of Pepcid, 1 L of fluid, and 10 mg of Reglan in the ED. PMHx: HTN, hypothyroidism, in a coma for one month secondary to carbon monoxide poisoning PSHx: cholecystectomy, "scalp surgery" Allergies: "Fruits" Family Hx: noncontributory Social Hx: denies ETOH use, Denies tobacco use, Denies illicit drug use Daughter's contact number is [phone] Present on Admission - Present on Admission Any Indicators Present on Admission: No Review of Systems - Review of Systems All systems: reviewed and no additional remarkable complaints except (as per HPI ) Past Patient History - Past Social History Smoking Status: Never Smoked - CARDIAC Hx Cardiac Disorders: Yes Hx Hypertension: Yes - PULMONARY Hx Respiratory Disorders: No - NEUROLOGICAL Hx Neurological Disorder: No - HEENT Hx HEENT Problems: No - RENAL Hx Chronic Kidney Disease: Yes Hx Kidney Stones: Yes - ENDOCRINE/METABOLIC Hx Endocrine Disorders: Yes Hx Hypothyroidism: Yes - HEMATOLOGICAL/ONCOLOGICAL Hx Blood Disorders: No - INTEGUMENTARY Hx Dermatological Problems: No - MUSCULOSKELETAL/RHEUMATOLOGICAL Hx Musculoskeletal Disorders: No - GASTROINTESTINAL Hx Gastrointestinal Disorders: No - GENITOURINARY/GYNECOLOGICAL Hx Genitourinary Disorders: No - PSYCHIATRIC Hx Psychophysiologic Disorder: No Hx Substance Use: No - SURGICAL HISTORY Other/Comment: REMOVAL OF KIDNEY STONES. - ANESTHESIA Hx Anesthesia: No Hx Anesthesia Reactions: No Hx Malignant Hyperthermia: No Meds Allergies/Adverse Reactions: Allergies Allergy/AdvReac Type Severity Reaction Status Date / Time No Known Allergies Allergy Verified 12/04/17 11:07 Physical Exam - Constitutional Appears: In Acute Distress - Head Exam Head Exam: ATRAUMATIC, NORMOCEPHALIC - Eye Exam Additional comments: nystagmus - ENT Exam ENT Exam: Mucous Membranes Dry - Neck Exam Neck exam: Positive for: Normal Inspection - Respiratory Exam Respiratory Exam: Clear to Auscultation Bilateral, NORMAL BREATHING PATTERN. absent: Accessory Muscle Use - Cardiovascular Exam Cardiovascular Exam: RRR, +S1, +S2 - GI/Abdominal Exam GI & Abdominal Exam: Normal Bowel Sounds, Soft - Extremities Exam Extremities exam: Positive for: normal inspection. Negative for: calf tenderness - Back Exam Back exam: NORMAL INSPECTION. absent: CVA tenderness (L), CVA tenderness (R) - Neurological Exam Neurological exam: Alert, Oriented x3 Additional comments: horizontal saccades - Psychiatric Exam Psychiatric exam: Normal Affect - Skin Skin Exam: Dry, Intact, Normal Color, Warm Results - Vital Signs Recent Vital Signs: Last Vital Signs Temp 97.4 F L 12/04/17 11:17 Pulse 88 12/04/17 15:23 Resp 18 12/04/17 15:23 BP 104/62 12/04/17 15:23 Pulse Ox 100 12/04/17 15:23 - Labs Result Diagrams: 12/04/17 11:19 12/04/17 11:30 Assessment & Plan - Assessment and Plan (Free Text) Assessment: 52 year old Yemeni speaking female with a past medical history of hypertension , hypothyroidism, and obesity who presented with sudden onset vertigo, nausea, vomiting, and chest pain. Plan: 1) R/O CVA -MRI of head reveals: No evidence of an acute or early subacute infarction. BRAIN PARENCHYMA: Dilated perivascular is are favored over chronic lacune infarcts at the medial bilateral basal ganglia. There are infrequent occasional punctate long TR hyperintensities identified at the right greater than left frontal lobes without additional white matter whitten amount appreciated including the brainstem and cerebellum. There is no mass effect. Corpus callosum appears normal. Pattern may reflect early chronic microangiopathy and in fact is likely represents this. Good corticomedullary differentiation is appreciated and no suspicious extra-axial collections identified. VENTRICLES: Unremarkable. No hydrocephalus. CRANIUM: Unremarkable. ORBITS: Grossly unremarkable. PARANASAL SINUSES/MASTOIDS: Multifocal ethmoid, sphenoid and maxillary mucosal inflammatory change are seen bilaterally. VASCULAR SYSTEM: Skull base flow voids intact. OTHER FINDINGS: None. IMPRESSION: Likely early chronic microangiopathy. No acute or subacute brain infarction mass effect or hydrocephalus. Follow-up MRI with intravenous contrast may be performed if clinically warranted. - Neurochecks - fall precautions - HOB 30 - Neurologyh consulted, Dr. Khan 2) Hypothyroidism - Synthroid 137 mcg PO daily - TSH was 0.06, T3 and T4 ordered with AM blood work 3) Chest pain r/o ACS - Troponin x3 - Cardiology consulted, Dr. Macias 4) Hypertension - Lisinopril 20 mg PO daily 5) DVT/GI prophylaxis - Pepcid 20 mg HS - SCD Case reviewed and discussed with attending physician, Dr. Hanna - Date & Time Date: 12/04/17 Time: 20:56
--- NOTE | 2017-12-04 18:26 | MRI ---
PROCEDURE: MRI BRAIN WITHOUT CONTRAST HISTORY: r/o cerebellar stroke COMPARISON: None. TECHNIQUE: Multiplanar, multisequence MR images of the brain were obtained without intravenous contrast enhancement. FINDINGS: HEMORRHAGE: None DWI: No evidence of an acute or early subacute infarction. BRAIN PARENCHYMA: Dilated perivascular is are favored over chronic lacune infarcts at the medial bilateral basal ganglia. There are infrequent occasional punctate long TR hyperintensities identified at the right greater than left frontal lobes without additional white matter whitten amount appreciated including the brainstem and cerebellum. There is no mass effect. Corpus callosum appears normal. Pattern may reflect early chronic microangiopathy and in fact is likely represents this. Good corticomedullary differentiation is appreciated and no suspicious extra-axial collections identified. VENTRICLES: Unremarkable. No hydrocephalus. CRANIUM: Unremarkable. ORBITS: Grossly unremarkable. PARANASAL SINUSES/MASTOIDS: Multifocal ethmoid, sphenoid and maxillary mucosal inflammatory change are seen bilaterally. VASCULAR SYSTEM: Skull base flow voids intact. OTHER FINDINGS: None. IMPRESSION: Likely early chronic microangiopathy. No acute or subacute brain infarction mass effect or hydrocephalus. Follow-up MRI with intravenous contrast may be performed if clinically warranted.
[2017-12-04 19:59] LABS: HDL CHOLESTEROL 46 mg/dL (29-60)
[2017-12-04 20:10] LABS: LDL CHOLESTEROL 81 mg/dL (0-129)
[2017-12-04 20:13] LABS: TROPONIN I < 0.01 ng/mL
[2017-12-04 22:21] LABS: URINE BILIRUBIN NEGATIVE (NEGATIVE); URINE BLOOD NEGATIVE (NEGATIVE); URINE GLUCOSE (UA) NEGATIVE (NEGATIVE); URINE LEUKOCYTE ESTERASE NEGATIVE Leu/uL (NEGATIVE); URINE PROTEIN NEGATIVE mg/dL (<30 mg/dL); URINE UROBILINOGEN 0.2 E.U./dL (<1 E.U./dL)
[2017-12-04 22:27] LABS: URINE APPEARANCE CLEAR (CLEAR); URINE COLOR YELLOW (YELLOW)
[2017-12-05 00:03] VITALS: RESP 20
[2017-12-05 06:03] VITALS: O2SAT 100
[2017-12-05 06:24] LABS: EOS # 0.1 (0.0-0.7); EOS % 1.2 % (1.5-5.0); GRAN # 3.55 (1.4-6.5); GRAN % 61.5 % (50.0-68.0); LYMPH # 1.8 (1.2-3.4); LYMPH % 30.6 % (22.0-35.0); MEAN CELL VOLUME 84.1 fl (80.0-105.0); MEAN CORPUSCULAR HEMOGLOBIN 28.3 pg (25.0-35.0); MEAN CORPUSCULAR HGB CONC 33.6 g/dl (31.0-37.0); MEAN PLATELET VOLUME 10.1 fl (7.0-11.0); MONO # 0.4 (0.1-0.6); MONO % 6.7 % (1.0-6.0); RBC 4.1 10^6/uL (3.5-6.1); RED CELL DISTRIBUTION WIDTH 12.8 % (11.5-14.5); WHITE BLOOD COUNT 5.8 10^3/ul (4.5-11.0)
[2017-12-05 06:28] LABS: HEMOGLOBIN 11.6 g/dL (12.0-16.0)
[2017-12-05 06:55] LABS: ALB/GLOB RATIO 1.3 (1.1-1.8); ALBUMIN 3.7 g/dL (3.0-4.8); ALT/SGPT 32 U/L (7-56); AST/SGOT 20 U/L (14-36); BLOOD UREA NITROGEN 10 mg/dL (7-21); CALCIUM 8.8 mg/dL (8.4-10.5); GFR AFRICAN-AMERICAN > 60; GFR NON-AFRICAN AMERICAN > 60
[2017-12-05 06:56] LABS: TROPONIN I < 0.01 ng/mL
[2017-12-05 06:57] LABS: T4 8.6 ug/dL (5.5-11.0)
[2017-12-05 07:11] LABS: T3 1.07 ng/mL (0.97-1.69)
[2017-12-05] MEDS ORDERED: Levothyroxine 112 MCG TAB ONE (08:23)
[2017-12-05 08:35] LABS: FREE T4 1.13 ng/dL (0.78-2.19)
[2017-12-05] MEDS ORDERED: DiphenhydrAMINE 12.5 mg/5 ml LIQ UD (5 ml) PO ONE (12:00)
--- NOTE | 2017-12-05 13:40 | CP.PCM.CON ---
History of Present Illness - History of Present Illness History of Present Illness: 52 yr old woman, [place] speaking who is here for subacute onset of abdominal pain, dizziness with vomiting taking place twice in one week, and some perceived ataxia. States all symptoms began this morning after taking double her dose of lisinopril. States she took double the dose because her systolic blood pressure was in the 150s-160s. States the chest pain is diffuse and radiates into the abdomen. The pain is associated with diaphoresis, nausea, and several bouts of nonbloody, nonbilious emesis. Also admits to dizziness and lightheadedness. Denies fever, chills, shortness of breath, diarrhea, constipation, and urinary symptoms. PMHx: HTN, hypothyroidism, coma secondary to carbon monoxide poisoning PSHx: cholecystectomy, "scalp surgery" Allergies: "Fruits" Family Hx: noncontributory Social Hx: denies ETOH use, Denies tobacco use, Denies illicit drug use on exam: Normal neurological exam. She is weak, and does not give full effort but i do not note any deficits. Past Patient History - Past Social History Smoking Status: Never Smoked - CARDIAC Hx Cardiac Disorders: Yes Hx Hypertension: Yes - PULMONARY Hx Respiratory Disorders: No - NEUROLOGICAL Hx Neurological Disorder: No - HEENT Hx HEENT Problems: No - RENAL Hx Chronic Kidney Disease: Yes Hx Kidney Stones: Yes - ENDOCRINE/METABOLIC Hx Endocrine Disorders: Yes Hx Hypothyroidism: Yes - HEMATOLOGICAL/ONCOLOGICAL Hx Blood Disorders: No - INTEGUMENTARY Hx Dermatological Problems: No - MUSCULOSKELETAL/RHEUMATOLOGICAL Hx Musculoskeletal Disorders: No - GASTROINTESTINAL Hx Gastrointestinal Disorders: No - GENITOURINARY/GYNECOLOGICAL Hx Genitourinary Disorders: No - PSYCHIATRIC Hx Psychophysiologic Disorder: No Hx Substance Use: No - SURGICAL HISTORY Other/Comment: REMOVAL OF KIDNEY STONES. - ANESTHESIA Hx Anesthesia: No Hx Anesthesia Reactions: No Hx Malignant Hyperthermia: No Meds Allergies/Adverse Reactions: Allergies Allergy/AdvReac Type Severity Reaction Status Date / Time fruits Allergy RASH Uncoded 12/04/17 22:24 - Medications Medications: Current Medications Atorvastatin Calcium (Lipitor) 10 mg PO DIN NE Famotidine (Pepcid) 20 mg IVP DAILY [facility] Last Admin: 12/05/17 09:30 Dose: 20 mg Levothyroxine Sodium 25 mcg/ (Levothyroxine Sodium 112 mcg) 137 mcg PO ACB [facility] Last Admin: 12/05/17 08:28 Dose: 137 mcg Lisinopril (Zestril) 20 mg PO DAILY NE Last Admin: 12/05/17 09:30 Dose: 20 mg Ondansetron HCl (Zofran Inj) 4 mg IVP Q4H PRN PRN Reason: Nausea/Vomiting Results - Vital Signs Recent Vital Signs: Last Vital Signs Temp 98.5 F 12/05/17 11:52 Pulse 86 12/05/17 11:52 Resp 20 12/05/17 11:52 BP 133/86 12/05/17 11:52 Pulse Ox 100 12/05/17 06:00 - Labs Result Diagrams: 12/05/17 05:45 12/05/17 05:45 Labs: Laboratory Results - last 24 hr 12/04/17 12/04/17 12/05/17 19:41 22:16 05:45 WBC RBC Hgb Hct MCV MCH MCHC RDW Plt Count MPV Gran % Lymph % (Auto) [place] % (Auto) Eos % (Auto) Baso % (Auto) Gran # Lymph # (Auto) [place] # (Auto) Eos # (Auto) Baso # (Auto) Sodium 143 Potassium 3.7 Chloride 108 H Carbon Dioxide 27 Anion Gap 12 BUN 10 Creatinine 0.6 L Est GFR ( Amer) > 60 Est GFR (Non-Af Amer) > 60 Random Glucose 97 Calcium 8.8 Total Bilirubin 0.7 AST 20 ALT 32 Alkaline Phosphatase 72 Troponin I < 0.01 < 0.01 Total Protein 6.5 Albumin 3.7 Globulin 2.8 Albumin/Globulin Ratio 1.3 Triglycerides 185 H Cholesterol 151 LDL Cholesterol Direct 81 HDL Cholesterol 46 Free T4 Thyroxine (T4) Total T3 TSH 3rd Generation Urine Color Yellow Urine Appearance Clear Urine pH 6.0 Ur Specific Mark <= 1.005 Urine Protein Negative Urine Glucose (UA) Negative Urine Ketones Negative Urine Blood Negative Urine Nitrate Negative Urine Bilirubin Negative Urine Urobilinogen 0.2 Ur Leukocyte Esterase Negative 12/05/17 12/05/17 12/05/17 05:45 05:45 06:30 WBC 5.8 RBC 4.10 Hgb 11.6 L D Hct 34.5 L MCV 84.1 MCH 28.3 MCHC 33.6 RDW 12.8 Plt Count 200 MPV 10.1 Gran % 61.5 Lymph % (Auto) 30.6 [place] % (Auto) 6.7 H Eos % (Auto) 1.2 L Baso % (Auto) 0.0 Gran # 3.55 Lymph # (Auto) 1.8 [place] # (Auto) 0.4 Eos # (Auto) 0.1 Baso # (Auto) 0.00 Sodium Potassium Chloride Carbon Dioxide Anion Gap BUN Creatinine Est GFR ( Amer) Est GFR (Non-Af Amer) Random Glucose Calcium Total Bilirubin AST ALT Alkaline Phosphatase Troponin I Total Protein Albumin Globulin Albumin/Globulin Ratio Triglycerides Cholesterol LDL Cholesterol Direct HDL Cholesterol Free T4 1.13 Thyroxine (T4) 8.6 Total T3 1.07 TSH 3rd Generation 0.07 L Urine Color Urine Appearance Urine pH Ur Specific Mark Urine Protein Urine Glucose (UA) Urine Ketones Urine Blood Urine Nitrate Urine Bilirubin Urine Urobilinogen Ur Leukocyte Esterase - Imaging and Cardiology MRI - head Status: Image reviewed by me, Report reviewed by me (MRI brain is normal. ) Assessment & Plan - Assessment and Plan (Free Text) Assessment: 52 yr old woman who is somewhat febrile and is neurologically normal. I feel that she does not have a neurological issue and may be recovering from viral syndrome. Please reconsult prn. Thank you Dr. parham
[2017-12-05] MEDS ORDERED: DiphenhydrAMINE 12.5 mg/5 ml LIQ UD (5 ml) PO SCH (16:00)
[2017-12-05] MEDS ORDERED: Sodium Chloride 0.9% 1,000 ML IV SCH (16:00)
--- NOTE | 2017-12-05 16:04 | CP.PCM.PN ---
<Taran Bautista - Last Filed: 12/05/17 16:25> Subjective - Date & Time of Evaluation Date of Evaluation: 12/05/17 Time of Evaluation: 15:57 - Subjective Subjective: Taran Bautista DO, PGY-1: Hospitalist Service Patient seen and examined at bedside. Patient reports increased nausea and dizziness with Meclizine. Patient given low dose of Diazepam and Diphenhydramine with improvement. Neurology cleared patient. Will continue to monitor. Patient reports her dizziness has improved from a 10/10 to a 3/10. Physical therapy apparently walked the patient and though the patient was able to ambulate, she reported having substantial dizziness. Important to note at the time of writing this note, no PT note is available for me to further characterize the session. Otherwise, all in all, the patient's conditions has moderately improved, but we will continue to monitor her for another day. Cardiology still has to evaluate the patient. Objective - Vital Signs/Intake and Output Vital Signs (last 24 hours): Temp Pulse Resp BP Pulse Ox 98.5 F 86 20 133/86 100 12/05/17 11:52 12/05/17 11:52 12/05/17 11:52 12/05/17 11:52 12/05/17 06:00 Intake and Output: 12/05/17 12/05/17 06:59 18:59 Intake Total 120 Balance 120 - Medications Medications: Current Medications Atorvastatin Calcium (Lipitor) 10 mg PO DIN NE Diazepam (Valium) 2 mg PO Q6H NE PRN Reason: Protocol Diphenhydramine HCl (Benadryl) 6.25 mg PO Q6H ON LICENSE OF [facility] Famotidine (Pepcid) 20 mg IVP DAILY ON LICENSE OF [facility] Last Admin: 12/05/17 09:30 Dose: 20 mg Sodium Chloride (Sodium Chloride 0.9%) 1,000 mls @ 100 mls/hr IV .Q10H NE Levothyroxine Sodium 25 mcg/ (Levothyroxine Sodium 112 mcg) 137 mcg PO ACB ON LICENSE OF [facility] Last Admin: 12/05/17 08:28 Dose: 137 mcg Lisinopril (Zestril) 20 mg PO DAILY ON LICENSE OF [facility] Last Admin: 12/05/17 09:30 Dose: 20 mg Ondansetron HCl (Zofran Inj) 4 mg IVP Q4H PRN PRN Reason: Nausea/Vomiting - Labs Labs: 12/05/17 05:45 12/05/17 05:45 - Constitutional Appears: No Acute Distress - Head Exam Head Exam: ATRAUMATIC, NORMOCEPHALIC - Eye Exam Eye Exam: EOMI, Normal appearance. absent: Nystagmus Pupil Exam: NORMAL ACCOMODATION - ENT Exam ENT Exam: Mucous Membranes Moist, Normal Oropharynx - Neck Exam Neck Exam: Normal Inspection - Respiratory Exam Respiratory Exam: Clear to Ausculation Bilateral, NORMAL BREATHING PATTERN. absent: Accessory Muscle Use - Cardiovascular Exam Cardiovascular Exam: RRR, +S1, +S2 - GI/Abdominal Exam GI & Abdominal Exam: Soft, Normal Bowel Sounds - Extremities Exam Extremities Exam: Normal Capillary Refill, Normal Inspection. absent: Calf Tenderness - Neurological Exam Neurological Exam: Alert, Awake, Oriented x3 Neuro motor strength exam: Left Upper Extremity: 5, Right Upper Extremity: 5, Left Lower Extremity: 5, Right Lower Extremity: 5 - Psychiatric Exam Psychiatric exam: Normal Affect, Normal Mood - Skin Skin Exam: Dry, Intact, Normal Color, Warm Assessment and Plan - Assessment and Plan (Free Text) Assessment: 52 year old [place] speaking female with a past medical history of hypertension , hypothyroidism, and obesity who presented with sudden onset vertigo, nausea, vomiting, and chest pain. 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 No acute or subacute brain infarction mass effect or hydrocephalus. Follow-up MRI with intravenous contrast may be performed if clinically warranted. - Neurology, Dr. Khan, evaluated the patient and considered the patient symptoms to be non-neurologic in nature - Favorable response with 12.5 mg of Diphenhydramine and 2 mg of Valium combination. - Zofran 4 mg q4h PRN for nausea - Physical therapy recommendations appreciated 2) Hypothyroidism - Synthroid 137 mcg PO daily - TSH was 0.06, T3 and T4 were normal 3) Chest pain r/o ACS - Troponin x3 - Cardiology consulted, Dr. Macias - EKG unremarkable 4) Hypertension, well controlled on current regiment - Lisinopril 20 mg PO daily 5) Dylipidemia - Atorvastatin 10 mg HS: on discharge patient to continue home Simvastatin 5) DVT/GI prophylaxis - Pepcid 20 mg HS - SCD Case reviewed and discussed with attending physician, Dr. Randall <Courtney Randall - Last Filed: 12/05/17 17:00> Objective - Vital Signs/Intake and Output Vital Signs (last 24 hours): Temp Pulse Resp BP Pulse Ox 98.5 F 86 20 133/86 100 12/05/17 11:52 12/05/17 11:52 12/05/17 11:52 12/05/17 11:52 12/05/17 06:00 Intake and Output: 12/05/17 12/05/17 06:59 18:59 Intake Total 120 Balance 120 - Medications Medications: Current Medications Atorvastatin Calcium (Lipitor) 10 mg PO DIN NE Diazepam (Valium) 2 mg PO Q6H NE PRN Reason: Protocol Famotidine (Pepcid) 20 mg IVP DAILY ON LICENSE OF [facility] Last Admin: 12/05/17 09:30 Dose: 20 mg Sodium Chloride (Sodium Chloride 0.9%) 1,000 mls @ 100 mls/hr IV .Q10H NE Levothyroxine Sodium 25 mcg/ (Levothyroxine Sodium 112 mcg) 137 mcg PO ACB ON [facility] OF [facility] Last Admin: 12/05/17 08:28 Dose: 137 mcg Lisinopril (Zestril) 20 mg PO DAILY ON LICENSE OF [facility] Last Admin: 12/05/17 09:30 Dose: 20 mg Ondansetron HCl (Zofran Inj) 4 mg IVP Q4H PRN PRN Reason: Nausea/Vomiting - Labs Labs: 12/05/17 05:45 12/05/17 05:45 Attending/Attestation - Attestation I have personally seen and examined this patient.: Yes I have fully participated in the care of the patient.: Yes I have reviewed all pertinent clinical information, including history, physical exam and plan: Yes Notes (Text): 12/05/17 16:55 52 year old female with past medical history of hypertension and hypothyroidism who presented with complaint of sudden onset of vertigo, nausea, vomiting and chest pain. CT head was negative for acute findings. MRI brain showed findings suggestive of likely early chronic microangiopathy without acute findings. She was seen by neurology. Symptoms did not improve with meclizine but did with valium. She was seen by PT who recommended home svcs. Discussed with hospice case manager. Serial cardiac enzymes were negative and ACS has been ruled out. Awaiting cardiology evaluation. She is on synthroid for hypothyroidism. Recommended to repeat TFTs in 4-6 weeks. Possible d/c planning pending cardiology evaluation. Daughter is at bedside and questions were answered. Courtney Randall MD Hospitalist.
[2017-12-05 17:15] VITALS: BP 121/76; PULSE 88; TEMP 98.4
--- NOTE | 2017-12-05 19:42 | CON ---
DATE: 12/05/2017 CARDIOLOGY CONSULT REASON FOR CONSULTATION: Dizziness and imbalance. HISTORY OF PRESENT ILLNESS: The patient is a 52-year-old moderately obese female originally from [facility], formerly in the [place]. Has a history of hypertension, hypothyroidism and hyperlipidemia. Presented initially because of dizziness and imbalance and has reported chest pain to the emergency room team; however, she denies having chest pain at this time and is unaware of any prior cardiac history in the past. The patient stated that she lost her brother and sister recently. Her brother of unknown sudden and her sister was diabetic and she is devastated by the loss of both, brother and sister. The patient denies any recent fall. SOCIAL HISTORY: Not a smoker and drinker. PAST MEDICAL HISTORY: Cholecystectomy. MEDICATIONS: Lipitor 10 mg once a day, Pepcid 20 mg intravenously daily, Synthroid 137 mcg daily, Valium 2 mg p.o. every 6 hours, Zestril 20 mg once a day, Zofran 4 mg intravenously every 4 hours p.r.n. PHYSICAL EXAMINATION: GENERAL: The patient is a middle-aged female, who does not appear to be in any acute distress. VITAL SIGNS: Blood pressure 121/76, heart rate 88, temperature 98.4, respirations 20. HEENT: Normocephalic. CHEST: Clear. HEART: S1 and S2 regular. ABDOMEN: Soft. EXTREMITIES: Trace leg edema. LABORATORY DATA: SMA-7: Sodium 143, potassium 3.7, chloride 108, CO2 of 27, glucose 97, BUN 10, creatinine 0.6. Three sets of troponins are negative. Hemoglobin and hematocrit today 11.6 and 34.5. White count and platelet count are within normal limit. Yesterday's hemoglobin and hematocrit were 13.6 and 39.1. EKG on admission revealed normal sinus rhythm at a rate of 84. Head CT scan without contrast: No acute findings. Brain MRI, likely early chronic microangiopathy. No acute or subacute brain infarction, mass effect or hydrocephalus. ASSESSMENT: 1. Dizziness and imbalance. Consider underlying dehydration as the patient's hemoglobin and hematocrit drop may be nearly 2 g compared to the admission one, which was probably hemoconcentrated on admission. 2. Obesity. 3. Hyperlipidemia. 4. Hypertension. 5. Hypothyroidism. RECOMMENDATIONS: Continue Lipitor at 10 mg once a day, Zestril 20 mg once a day, Synthroid at 137 mcg daily. No further cardiac workup is indicated at this time. Jovany Macias MD
== END 2017-12-05 20:13 | disposition home or self-care (01) ==
LOC: ED 10:52 → ERH 16:21 → 2RSO 18:47
PROVIDERS: ADMIT Internal Medicine; ATTEND Internal Medicine
DX: H81.90 Unspecified disorder of vestibular function, unspecified ear (principal); R42 Dizziness and giddiness; R26.9 Unspecified abnormalities of gait and mobility; I12.9 Hypertensive chronic kidney disease with stage 1 through stage 4 chronic kidney disease, or unspecified chronic kidney disease; N18.9 Chronic kidney disease, unspecified; R07.9 Chest pain, unspecified; E03.9 Hypothyroidism, unspecified; I73.9 Peripheral vascular disease, unspecified; E78.5 Hyperlipidemia, unspecified; E66.9 Obesity, unspecified; Z87.442 Personal history of urinary calculi; Z68.35 Body mass index [BMI] 35.0-35.9, adult
CPT/HCPCS: 36415; 70450; 70551; 71045; 80053; 80061; 81003; 82550; 82948; 83036; 83615; 83735; 84100; 84439; 84443; 84480; 84484; 85025; 93005; 96361; 96374; 96375; 96376; 97116; 97162; 99285; G0378; G8978; G8979; J2060; J2405; J2765; J3480; J7030